=== PATIENT | female | born 1990 | race Caucasian/White ===

== ENCOUNTER 2017-04-11 20:14 | Emergency (ER) | payer OTHER ==
[~2017-04-11] VITALS: Ht 165.1 cm; Wt 65.9 kg
[~2017-04-11 20:14] MED LIST: AMOX-366 PO; FLUC150T48 PO; MECL-114 PO
[2017-04-11 20:33] VITALS: BP 125/79; PULSE 79; RESP 16; O2SAT 97
[2017-04-11 21:13] LABS: BASOPHILS % (AUTO) 0.3 % (0-3); EOSINOPHILS % (AUTO) 0.8 % (0-5); MONOCYTES % (AUTO) 6.8 % (4-12); Mean Corpuscular Hemoglobin 30.7 pg (27.0-35.0); Platelet Count 167 bil/L (150-400)
[2017-04-11 21:40] LABS: Magnesium 2.2 mg/dL (1.6-2.6)
--- NOTE | 2017-04-11 23:10 | ED.REPORT ---
HPI-General Illness Date of Service Apr 11, 2017 ED Provider: Dr. Jackson 26 y/o female with no pertinent hx presents to the ED complaining of lower right back pain, onset yesterday. She denies any trauma to her back. Associated sx include intermittent diarrhea for the last two weeks and nausea earlier today , which has now resolved. The pt also complains of a sharp pain under her left breast, intermittently over the past 3-4 months.. She denies abnormal vaginal discharge, dysuria, urinary urgency and frequency, fever, cough, vomiting, change in appetite, melena, hematuria and hx of kidney stones. The pt has an IUD. Nursing Notes Stated Complaint: CHEST PAIN, RIGHT LOWER BACK PAIN Chief Complaint: General Complaint Nursing Notes Reviewed: Yes Allergies: Coded Allergies: No Known Allergies (Verified , 09/25/15) Scheduled Amoxicillin/Clav K 875-125 mg (Augmentin 875-125 mg) 1 Each Tablet 1 TABLET PO BID Fluconazole (Diflucan) 150 Mg Tablet 150 MG PO ONCE to use after antibiotic if there are vaginal yeast infection symptoms Scheduled PRN Meclizine (Bonine) 25 Mg Tab.chew 25 MG PO TID PRN PRN DIZZINESS General Time Seen by MD: 23:10 Chief Complaint Back pain (lower right) Hx Obtained From: Patient Arrived By: Walk-in Sudden in Onset?: Yes Onset Occurred: Yesterday Symptom Duration: Since onset Location: : Back Quality: Painful Radiation: : Does not radiate Severity: Current: Moderate Severity: Maximum: Moderate Recent Healthcare: No recent doctor visit Similar Sx Previous: No Past Medical History Past Medical History None Past Surgical History Reports: Tonsillectomy Family History Noncontributory Smoking History Former Smoker Social History Alcohol Use: Denies alcohol use Drug Use: Denies drug use Occupation [employer] Status Independent Review of Systems Denies: change in appetite Full Review of Systems Constitutional: Denies: Fever Respiratory: Denies: Non-productive cough Cardiovascular: Reports: Chest pain (under left breast) GI: Reports: Diarrhea (intermittent), Nausea (now resolved), Denies: Melena, Vomiting Female: Denies: Dysuria, Hematuria, Urinary frequency, Urinary urgency, Vaginal discharge Musculoskeletal: Reports: Back pain (lower right) Complete sys rev & neg: except as marked. Physical Exam Vital Signs Vital Signs Date Time Temp Pulse Resp B/P Pulse Ox O2 Delivery O2 Flow Rate FiO2 04/11/17 20:33 36.8 79 16 125/79 97 Room Air Initial VS: Reviewed, Vital signs normal Head / Eyes: Atraumatic, Normocephalic Neck: Supple, Non-tender, Full range of motion Respiratory: Breath sounds normal, Clear to auscultation, No respiratory distress Cardiovascular: Regular rate & rhythm, Heart sounds normal, Intact distal pulses Abdomen / GI: Soft, Non-tender, No distention Back: No CVA tenderness Extremities: Vascular intact, Neuro intact, No swelling, No tenderness Skin: Warm, Dry, No cyanosis Neurologic: Alert, Oriented, Nonfocal General/Constitutional: Awake, Alert, No acute distress, Well appearing, Cooperative Interpretation & Diagnostics Lab Results Interpretation Result Diagram: 04/11/17210204/11/172102 Test 04/11/17 21:03 04/11/17 21:06 04/11/17 23:28 White Blood Count 6.3th/mm3 (3.8-10.1) Red Blood Count 4.56mil/mm3 (3.90-5.20) Hemoglobin 14.0g/dL (12.0-15.6) Hematocrit 40.6% (35.0-46.0) Mean Corpuscular Volume 89.0fL (81-100) Mean Corpuscular Hemoglobin 30.7pg (27.0-35.0) Mean Corpuscular Hemoglobin Concent 34.5% (32.0-37.0) Red Cell Distribution Width 13.3% (12.3-15.4) Platelet Count 167bil/L (150-400) Neutrophils (%) (Auto) 51.0% (40-74) Lymphocytes (%) (Auto) 40.8% (14-46) Monocytes (%) (Auto) 6.8% (4-12) Eosinophils (%) (Auto) 0.8% (0-5) Basophils (%) (Auto) 0.3% (0-3) Sodium Level 141mEq/L (134-144) Potassium Level 4.1mEq/L (3.5-5.2) Chloride Level 106mEq/L (97-108) Carbon Dioxide Level 22mmol/L (18-29) Blood Urea Nitrogen 12mg/dL (6-20) Creatinine 0.74mg/dL (0.57-1.00) Estimat Glomerular Filtration Rate 135mL/min (>59) Glucose Level 115mg/dL (60-99) Calcium Level 10.0mg/dL (8.5-10.1) Magnesium Level 2.2mg/dL (1.6-2.6) Total Bilirubin 0.2mg/dL (0.0-1.2) Aspartate Amino Transf (AST/SGOT) 18U/L (0-50) Alanine Aminotransferase (ALT/SGPT) 21U/L (0-32) Alkaline Phosphatase 61U/L (25-150) Total Protein 7.6g/dL (6.4-8.4) Albumin 4.3g/dL (3.4-5.0) Lipase 28U/L (13-60) Hold [place] Top Tube Received (Received) Urine Color Yellow (YELLOW) Urine Appearance Cloudy (CLEAR,HAZY) Urine pH 6.0 (5.0-8.0) Urine Specific [place] 1.025 (1.003-1.035) Urine Protein 30mg/dL (NEG,TRACE) Urine Glucose (UA) Negativemg/dL (NEGATIVE) Urine Ketones Negativemg/dL (NEGATIVE) Urine Occult Blood Negative (NEGATIVE) Urine Nitrite Negative (NEGATIVE) Urine Bilirubin Negative (NEGATIVE) Urine Urobilinogen Normalmg/dL (NORMAL) Urine Leukocyte Esterase Negative (NEGATIVE) Urine RBC 0-2/hpf (0-2) Urine WBC 0-5/hpf (0-5) Urine Epithelial Cells Many/hpf (NONE-MOD) Urine Crystals None seen (NONE SEEN) Urine Bacteria Many/hpf (NONE-FEW) Urine Hyaline Casts None/lpf (NONE) Urine Granular Casts None seen (NONE SEEN) Urine Waxy Casts None seen (NONE SEEN) Urine Red Blood Cell Casts None seen (NONE SEEN) Urine White Blood Cell Casts None seen (NONE SEEN) Urine Mucus Present (None Seen) Urine Trichomonas None seen (NONE SEEN) Urine Yeast None (NONE SEEN) Urinalysis Comment None Urine Culture Reflexed Indicated ECG Interpretation ECG Interpretation: Normal Sinus rhythm. Rate 64. Time: 01:03 Interpreted by: ED physician X-Ray Abdominal Interpretation Result: Abundant stool Study: Portable Interpretation / Wet Read by: Wet read ED physician Re-Eval/Medical Decision Med Decision/Clinical Course Lower abdominal pain with no certain etiology, but suspect some contribution of constipation and irritable bowel. Abdomen flat and erect shows moderate stool including solids and gas in the right colon No indication for advanced imaging. No abnormalities on lab to suggest more serious pathology. Her exam is benign initially and remains benign over the period of observation here. Milk of magnesia and follow-up here at PCP office. Incidental complaint of chronic intermittent sharp chest pain that appears to be related to the chest wall. EKG is completely normal. This appears to be a chest wall pain and not anything significant. It is been chronic over many months and unchanged. Discharged in stable condition. Source of Hx: Old records Time of Eval: 00:51 Re-Evaluation/Progress Note: Rechecked pt. Discussed imaging results, diagnosis and plan to administer magnesium hydroxide. The pt understands and agrees with the plan. All questions answered. Time of Eval: 01:43 Patient Status: Condition improved Re-Evaluation/Progress Note: Rechecked pt. Discussed plan to discharge. Pt understands and agrees with the plan. F/U instructions and RTER warning given. All questions addressed. Counseled Regarding: Diagnosis, Lab results, Need for follow-up, When/why to return to ED Discharge & Departure Primary Impression: Abdominal pain Abdominal location: left upper quadrant Qualified Code: R10.12 - Left upper quadrant pain Additional Impressions: Constipation Constipation type: unspecified constipation type Qualified Code: K59.00 - Constipation, unspecified Non-cardiac chest pain Disposition: Home Discharge Condition All VS Reviewed: Yes Condition: Stable Patient Instructions: Acute Abdominal Pain (ED), Constipation (ED) Additional Instructions: Increase the fiber in your diet. Increase your exercise generally. Return if her pain is worsening despite treatment. Follow-up with your doctor in the office. Referrals: Bishop Mullins MD (PCP) Scribe Attestation Portions of this note were transcribed by Grace Judd. I, , personally performed the history, physical exam and medical decision- making;I reviewed and confirmed the accuracy of the information in the transcribed note. Signed by Olimpia Ivory. 04/12/17 01:58 copies to: Bishop Mullins MD, Christopher W MD Apr 11, 2017 23:10 Grace Judd Apr 11, 2017 23:18
[2017-04-11 23:44] LABS: APPEARANCE,URINE CLOUDY (CLEAR,HAZY); COLOR,URINE YELLOW (YELLOW); OCCULT BLOOD,URINE NEGATIVE (NEGATIVE); UROBILINOGEN,URINE NORMAL (NORMAL)
[2017-04-12] MEDS ORDERED: Magnesium Hydroxide 10 mL Oral Concentration PO ONE (00:45)
--- NOTE | 2017-04-12 09:33 | DRSVH ---
PROCEDURE: X-RAY ABDOMEN WITH ERECT AND/OR DECUBITUS VIEWS ([id number]) INDICATIONS: rlq pain, loose stools TECHNIQUE: 2 views of the abdomen were acquired. COMPARISON: None. FINDINGS: Surgical changes and devices: None. Bowel: No pneumoperitoneum. Mild fecal loading otherwise bowel gas pattern is normal. Soft tissues: No masses; visualized solid organ contours appear normal in size. No suspicious abdom inal calcifications. Bones: No suspicious bony abnormalities. IMPRESSION: Mild fecal loading otherwise normal bowel gas pattern. Dictated by: Lucas Laguerre [facility] Interpreted: Fran Doll MD on 04/12/2017 at 9:31 Transcribed by: CORTNEY on 04/12/2017 at 9:32 Approved by: Fran Doll M.D. on 04/12/2017 at 16:26
== END 2017-04-12 01:49 | disposition home or self-care (01) ==
LOC: SED 20:14
DX: R10.12 Left upper quadrant pain (principal); K59.00 Constipation, unspecified; R07.89 Other chest pain; Z87.891 Personal history of nicotine dependence